=== PATIENT | male | born 1970 | race Two or more races ===

== ENCOUNTER 2024-06-03 22:24 | Emergency (ER) | payer SELFPAY ==
[~2024-06-03] VITALS: Ht 175.3 cm; Wt 81.8 kg
[~2024-06-03 22:24] MED LIST: FAMO20 PO
[2024-06-03 22:36] VITALS: BP 124/91; PULSE 93; RESP 20; TEMP 98.3; O2SAT 94
== END 2024-06-04 00:37 ==
LOC: EMS 22:24
DX: S79.911A Unspecified injury of right hip, initial encounter (principal); Z04.3 Encounter for examination and observation following other accident; X58.XXXA Exposure to other specified factors, initial encounter; Y93.89 Activity, other specified; Y92.89 Other specified places as the place of occurrence of the external cause; Y99.8 Other external cause status
CPT/HCPCS: 72100; 73502; 99284